=== PATIENT | male | born 1935 | race Caucasian/White ===

== ENCOUNTER → 2016-06-25 | Outpatient (CLI) | payer OTHER, BC ==
[~2016-06-25] MED LIST: ANT25 PO; ASPCH81; ASPI81TA28 PO; CMD4 PO; FINA5TAB PO; IBUP-1050 PO; LNX125 PO; METO-452 PO; METO50TA16 PO; NTRGSL/4 UT; ONDA4TAB10 SL; PRAV40TA2 PO; WARF2TAB8 PO; WARF4TAB8 PO
[2016-06-25 12:29] LABS: CHOLESTEROL/HDL RATIO 3.5
== END | disposition home or self-care (01) ==
LOC: C.LAB1850 09:10
PROVIDERS: ATTEND Internal Medicine Cardiovascular Disease
DX: E78.00 Pure hypercholesterolemia, unspecified (principal); I10 Essential (primary) hypertension

== ENCOUNTER → 2016-06-27 | Outpatient (CLI) | payer OTHER, BC ==
[2016-06-27 15:09] LABS: CALCIUM 9.2 mg/dl (8.5-10.1)
[2016-06-27 15:17] LABS: BLOOD UREA NITROGEN 20 mg/dl (7-18); BUN/CREATININE RATIO 21.8 (10-20); CARBON DIOXIDE 30 mmol/L (21-32); CHLORIDE 105 mmol/L (98-107); CREATININE 0.91 mg/dl (0.60-1.40); GLUCOSE 86 mg/dl (70-99); POTASSIUM 4.5 mmol/L (3.5-5.1); SODIUM 141 mmol/L (136-145)
== END | disposition home or self-care (01) ==
LOC: C.LABBC 11:52
PROVIDERS: ATTEND Family Medicine
DX: I10 Essential (primary) hypertension (principal); C61 Malignant neoplasm of prostate

== ENCOUNTER 2016-07-26 13:23 | Emergency (ER) | payer OTHER, BC ==
[~2016-07-26] VITALS: Ht 172.7 cm; Wt 53.6 kg
[~2016-07-26 13:23] MED LIST changes: -ANT25 PO; -ASPI81TA28 PO; -METO-452 PO; -ONDA4TAB10 SL; -WARF4TAB8 PO
[2016-07-26 13:31] VITALS: TEMP 36.7
[2016-07-26] MEDS ORDERED: MECLIZINE HCL 25 MG TAB PO STA (14:21)
[2016-07-26] MEDS ORDERED: SODIUM CHLORIDE 0.9% 500ML 500 ML IV STA (14:21)
[2016-07-26] MEDS ORDERED: ONDANSETRON INJ 2 MG/ML 2 ML VIAL IV STA (14:21)
--- NOTE | 2016-07-26 14:29 | EMERGENCY ROOM VISIT NOTE ---
History Report prepared by [place]: Sharri Robb Under the Supervision of: Dr. Alphonso Cooper M.D. First contact with patient: 14:15 Chief Complaint: DIZZY Stated Complaint: DIZZY, NAUSEA Nursing Triage Summary: dizziness, vomiting. he had similar symptoms like this in the past, vertigo/ ear infections. patient denies slurred speech. History of Present Illness The patient is an 81 year old male who presents to the Emergency Room with complaints of persistent dizziness that began approximately 1.5 hours prior to arrival. The patient states that today he developed dizziness and then became nauseous and vomited. He states that he noticed the symptoms in his whole body and denies any one-sided weakness. The patient reports that he felt fine earlier today and denies any recent illness over the past several days. He additionally associates abdominal pain with his symptoms today, but denies any chest pain or fall due to his dizziness. The patient reports that he has been becoming increasingly weak over the past several weeks. The patient states that he has had vertigo in the past. Source of History: patient Onset: 1.5 hours prior to arrival Position: other (global) Quality: other (dizziness) Timing: other (persistent) Associated Symptoms: + nausea, + vomiting, + abdominal pain, + fatigue, No chest pain Review of Systems ROS: Please see HPI. At least 10 systems in total were reviewed and otherwise negative. Past Medical & Surgical Medical Problems: (1) Heart disease (2) Hypertension (3) Stroke Surgical Problems: (1) Prostate cancer Family History FH: heart disease Social History Smoking Status: Never Smoker Alcohol Use: none Marital Status: Occupation Status: retired Current/Historical Medications Scheduled Aspirin (Aspirin Ec), 81 MG PO DAILY Digoxin (Digoxin), 125 MCG PO HS Metoprolol Succinate (Toprol Xl), 50 MG PO DAILY Nitroglycerin (Nitrostat), 0.4 MG UT PRN Ondasetron Odt (Zofran Odt), 4 MG SL Q6H Warfarin Sod (Coumadin), 4 MG PO 5XWK Warfarin Sod (Jantoven), 2 MG PO 2XWK Scheduled PRN Meclizine HCl (Meclizine HCl), 1 TAB PO Q6 PRN for Dizziness or Vertigo Allergies Coded Allergies: Lovastatin (Verified Adverse Reaction, Unknown, INTOLERANT TO STATINS, ) Niacin (Verified Adverse Reaction, Unknown, INTOLERANT, 11/20/15) Physical Exam Vital Signs Date Time Temp Pulse Resp B/P (MAP) Pulse Ox O2 Delivery O2 Flow Rate FiO2 07/26/16 16:35 70 17 146/78 99 Room Air 07/26/16 15:00 97 Room Air 07/26/16 14:45 70 12 129/72 98 Room Air 07/26/16 14:32 73 07/26/16 13:31 36.7 72 18 120/67 97 Room Air Physical Exam GENERAL: Patient is in no acute distress. HEENT: No acute trauma, normocephalic atraumatic, no nystagmus, mucous membranes moist, no nasal congestion, no scleral icterus. NECK: No stridor, no adenopathy, no meningismus, trachea is midline. LUNGS: Clear to auscultation bilaterally, no wheeze, no rhonchi, breath sounds equal. HEART: Subtle systolic murmur with an irregular rhythm and normal rate. ABDOMEN: Soft, nontender, bowel sounds positive, no hernias, no peritonitis. EXTREMITIES: No cyanosis or edema, full range of motion of all the joints without pain or difficulty, no signs for acute trauma. NEUROLOGIC: Oriented x 3, no acute motor or sensory deficits, no focal weakness. No pronator drift or cerebellar dysfunction, no speech slur or facial droop. SKIN: No rash, no jaundice, no diaphoresis. Medical Decision & Procedures ER Provider Diagnostic Interpretation: X-ray results as stated below per interpretation by me and the radiologist: CT SCAN OF THE BRAIN WITHOUT IV CONTRAST CLINICAL HISTORY: Strokelike symptoms. Generalized weakness. Unsteady gait. COMPARISON STUDY: CT of the brain dated 10/15/2012. TECHNIQUE: Unenhanced axial CT scan of the brain is performed from the vertex to the skull base. CT DOSE: 537.48 mGy.cm FINDINGS: Brain parenchyma: There are age-related involutional changes noting [id number] patchy subcortical and periventricular microangiopathic change. There is no hemorrhage, mass effect, or evidence of acute territorial ischemia by CT criteria. Feldman-white matter is preserved. No extra-axial fluid collection is seen. Ventricles, sulci, cisterns: Prominent secondary to involutional change. Intracranial vasculature: There is atherosclerotic calcification of the cavernous carotid and vertebral arteries. Calvarium: Unremarkable. Sinuses and mastoids: The visualized paranasal sinuses are clear. The mastoid air cells are well pneumatized. Orbits: The bony orbits are grossly intact. There are bilateral ocular lens implants. IMPRESSION: There is no hemorrhage, mass effect, or evidence of acute territorial ischemia by CT criteria. Electronically signed by: Alphonso Leal M.D. 07/26/2016 3:29 PM Dictated Date/Time: 07/26/2016 3:26 PM Laboratory Results 07/26/16 14:30 Red Blood Count 4.30, Mean Corpuscular Volume 94.4, Mean Corpuscular Hemoglobin 31.9, Mean Corpuscular Hemoglobin Concent 33.7, Mean Platelet Volume 9.0, Neutrophils (%) (Auto) 79.5, Lymphocytes (%) (Auto) 12.0, Monocytes (%) (Auto) 7.9, Eosinophils (%) (Auto) 0.3, Basophils (%) (Auto) 0.3, Neutrophils # (Auto) 5.16, Lymphocytes # (Auto) 0.78, Monocytes # (Auto) 0.51, Eosinophils # (Auto) 0.02, Basophils # (Auto) 0.02 07/26/16 14:30 Test 07/26/16 14:30 07/26/16 16:04 White Blood Count 6.49 K/uL (4.8-10.8) Red Blood Count 4.30 M/uL (4.7-6.1) Hemoglobin 13.7 g/dL (14.0-18.0) Hematocrit 40.6 % (42-52) Mean Corpuscular Volume 94.4 fL (80-100) Mean Corpuscular Hemoglobin 31.9 pg (25-34) Mean Corpuscular Hemoglobin Concent 33.7 g/dl (32-36) Platelet Count 208 K/uL (130-400) Mean Platelet Volume 9.0 fL (7.4-10.4) Neutrophils (%) (Auto) 79.5 % Lymphocytes (%) (Auto) 12.0 % Monocytes (%) (Auto) 7.9 % Eosinophils (%) (Auto) 0.3 % Basophils (%) (Auto) 0.3 % Neutrophils # (Auto) 5.16 K/uL (1.4-6.5) Lymphocytes # (Auto) 0.78 K/uL (1.2-3.4) Monocytes # (Auto) 0.51 K/uL (0.11-0.59) Eosinophils # (Auto) 0.02 K/uL (0-0.5) Basophils # (Auto) 0.02 K/uL (0-0.2) RDW Standard Deviation 50.4 fL (36.4-46.3) RDW Coefficient of Variation 14.7 % (11.5-14.5) Immature Granulocyte % (Auto) 0.0 % Immature Granulocyte # (Auto) 0.00 K/uL (0.00-0.02) Anion Gap 9.0 mmol/L (3-11) Est Creatinine Clear Calc Drug Dose 39.3 ml/min Estimated GFR () 72.1 Estimated GFR (Non- 62.2 BUN/Creatinine Ratio 22.1 (10-20) Calcium Level 8.8 mg/dl (8.5-10.1) Magnesium Level 2.1 mg/dl (1.8-2.4) Total Bilirubin 0.8 mg/dl (0.2-1) Direct Bilirubin 0.2 mg/dl (0-0.2) Aspartate Amino Transf (AST/SGOT) 33 U/L (15-37) Alanine Aminotransferase (ALT/SGPT) 25 U/L (12-78) Alkaline Phosphatase 91 U/L (45-117) Total Creatine Kinase 193 U/L (39-308) Creatine Kinase MB 2.8 ng/ml (0.5-3.6) Creatine Kinase MB Ratio 1.5 (0-3.0) Troponin I 0.033 ng/ml (0-0.045) Total Protein 7.3 gm/dl (6.4-8.2) Albumin 3.7 gm/dl (3.4-5.0) Thyroid Stimulating Hormone (TSH) 0.725 uIu/ml (0.300-4.500) Digoxin Level 0.7 ng/ml (0.8-2.0) Prothrombin Time 17.9 SECONDS (9.0-12.0) Prothromb Time International Ratio 1.6 (0.9-1.1) Activated Partial Thromboplast Time 29.0 SECONDS (21.0-31.0) Partial Thromboplastin Ratio 1.1 Laboratory results reviewed by me. Medications Administered Medications (Trade) Dose Ordered Sig/Omi Route Start Time Stop Time Status Last Admin Dose Admin Sodium Chloride 500 ml @ 999 mls/hr Q31M STAT IV 07/26/16 14:21 07/26/16 14:51 DC 07/26/16 14:53 999 MLS/HR Meclizine HCl (Antivert Tab) 25 mg NOW STAT PO 07/26/16 14:21 07/26/16 14:24 DC 07/26/16 14:54 25 MG Ondansetron HCl (Zofran Inj) 4 mg NOW STAT IV 07/26/16 14:21 07/26/16 14:24 DC 07/26/16 14:53 4 MG ECG Indication: nausea, vomiting, other (dizziness) Rate (beats per minute): 71 Rhythm: other (ventricular pacemaker) Findings: no acute ischemic change, other (occasional [place] beats) ED Course 1416: The patient was evaluated in room B6. A complete history and physical exam was performed. 1421: Ordered Zofran Inj 4 mg IV, Antivert Tab 25 mg PO, Sodium Chloride 500 ml @ 999 mls/hr IV. 1628: I reevaluated the patient and he is feeling a lot better. I discussed his exam findings with him thus far. He is going to have an ambulation trial. 1637: Per nursing staff the patient has done well with his ambulatory trial. I discussed the treatment plan with him and he verbalized complete understanding and agreement. He is ready to go home shortly. 1657: I reevaluated the patient and he is doing well. He is ready to go home. Medical Decision The patient is an 81 year old male who presents to the ED with complaints of dizziness. Differential diagnoses considered include vertigo, stroke, electrolyte imbalance, dysrhythmia, anemia, infection. There is no leukocytosis or concerning anemia. No significant electrolyte abnormality or kidney failure. The patient appeared to be in a euthyroid state. EKG showed a ventricular pacemaker, no evidence for dysrhythmia. Cardiac enzyme testing times one is not consistent with acute cardiac injury. Brain CT shows no acute bleed or mass effect. The patient's INR was somewhat low for someone using Coumadin. He was under anticoagulated. Digoxin level was not toxic. On exam, there were no focal neurologic deficits. The patient received IV saline, he was given IV Zofran and oral meclizine. He was watched here for a few hours. He feels markedly improved. He is now up and walking without symptoms. The patient likely has vertigo as a cause for his presentation. I do think he can be discharged with some meclizine and Zofran, he was encouraged to follow with his doctor and to return here for worsening symptoms. He will need to have his INR followed closely. He is taking an extra dose of Coumadin tonight to try to boost his levels. Medication Reconciliation: I attest that I have personally reviewed the patient' s current medication list. Blood Pressure Screening: Patient was found to have an elevated blood pressure and was referred to their primary doctor for recheck and further treatment. Impression Primary Impression: Vomiting Additional Impression: Vertigo Scribe Attestation The scribe's documentation has been prepared under my direction and personally reviewed by me in its entirety. I confirm that the note above accurately reflects all work, treatment, procedures, and medical decision making performed by me. Departure Information Dispostion Home / Self-Care Prescriptions Ondasetron Odt (ZOFRAN ODT) 4 Mg Tab 4 MG SL Q6H for Nausea, #12 TAB Prov: Alphonso Cooper M.D. 07/26/16 Meclizine HCl (Meclizine HCl) 25 Mg Tab 1 TAB PO Q6 Y for Dizziness or Vertigo, #12 TAB Prov: Alphonso Cooper M.D. 07/26/16 Referrals Je Jensen D.O.Int.Med. (PCP) Forms HOME CARE DOCUMENTATION FORM, IMPORTANT VISIT INFORMATION Patient Instructions My [facility] Additional Instructions rest stay well hydrated meclizine 1 tab every 6 hours for dizziness or vertigo zofran 1 tab every 6 hours as needed for nausea see marcia castorena for a recheck next week take a full tab of coumadin today--recheck the INR next week, it was a little low today return if worsening Problem Qualifiers
[2016-07-26 14:51] LABS: BASO % 0.3 %; BASO ABS # 0.02 K/uL (0-0.2); COMPLETE YES; EOS % 0.3 %; HEMATOCRIT 40.6 % (42-52); LYMPH ABS # 0.78 K/uL (1.2-3.4); MEAN CELL VOLUME 94.4 fL (80-100); MEAN CORPUSCULAR HEMOGLOBIN 31.9 pg (25-34); MEAN CORPUSCULAR HGB CONC 33.7 g/dl (32-36); MONO % 7.9 %; NEUT % 79.5 %; PLATELET COUNT 208 K/uL (130-400); WHITE BLOOD COUNT 6.49 K/uL (4.8-10.8)
[2016-07-26 15:00] VITALS: O2SAT 97; Ht 172.7 cm; Wt 53.6 kg
--- NOTE | 2016-07-26 15:30 | DIAGNOSTIC IMAGING REPORT ---
CT SCAN OF THE BRAIN WITHOUT IV CONTRAST CLINICAL HISTORY: Strokelike symptoms. Generalized weakness. Unsteady gait. COMPARISON STUDY: CT of the brain dated 10/15/2012. TECHNIQUE: Unenhanced axial CT scan of the brain is performed from the vertex to the skull base. CT DOSE: 537.48 mGy.cm FINDINGS: Brain parenchyma: There are age-related involutional changes noting [id number] patchy subcortical and periventricular microangiopathic change. There is no hemorrhage, mass effect, or evidence of acute territorial ischemia by CT criteria. Feldman-white matter is preserved. No extra-axial fluid collection is seen. Ventricles, sulci, cisterns: Prominent secondary to involutional change. Intracranial vasculature: There is atherosclerotic calcification of the cavernous carotid and vertebral arteries. Calvarium: Unremarkable. Sinuses and mastoids: The visualized paranasal sinuses are clear. The mastoid air cells are well pneumatized. Orbits: The bony orbits are grossly intact. There are bilateral ocular lens implants. IMPRESSION: There is no hemorrhage, mass effect, or evidence of acute territorial ischemia by CT criteria. Electronically signed by: Alphonso Leal M.D. 07/26/2016 3:29 PM Dictated Date/Time: 07/26/2016 3:26 PM
[2016-07-26 15:33] LABS: BUN/CREATININE RATIO 22.1 (10-20); CALCIUM 8.8 mg/dl (8.5-10.1); CREATININE 1.1 mg/dl (0.60-1.40); MAGNESIUM 2.1 mg/dl (1.8-2.4); POTASSIUM 4.3 mmol/L (3.5-5.1)
[2016-07-26] MEDS ORDERED: WARF4TAB8 PO (15:42)
[2016-07-26] MEDS ORDERED: CMD4 PO (15:42)
[2016-07-26] MEDS ORDERED: ASPI81TA28 PO (15:42)
[2016-07-26] MEDS ORDERED: METO-452 PO (15:42)
[2016-07-26 15:44] LABS: CKMB/CK RATIO 1.5 (0-3.0); THYROID STIMULATING HORMONE 0.725 uIu/ml (0.300-4.500)
[2016-07-26 16:26] LABS: INR 1.6 (0.9-1.1); PARTIAL THROMBOPLASTIN RATIO 1.1; PROTHROMBIN TIME (PATIENT) 17.9 SECONDS (9.0-12.0)
[2016-07-26 16:35] VITALS: BP 146/78; PULSE 70; O2SAT 99
[2016-07-26] MEDS ORDERED: ANT25 PO (16:54)
[2016-07-26] MEDS ORDERED: ONDA4TAB10 SL (16:54)
== END 2016-07-26 17:04 | disposition home or self-care (01) ==
LOC: C.EDB 13:24
DX: R11.10 Vomiting, unspecified (principal); R42 Dizziness and giddiness; I10 Essential (primary) hypertension; I51.9 Heart disease, unspecified; Z86.73 Personal history of transient ischemic attack (TIA), and cerebral infarction without residual deficits; Z85.46 Personal history of malignant neoplasm of prostate; Z79.82 Long term (current) use of aspirin; Z79.01 Long term (current) use of anticoagulants; Z79.899 Other long term (current) drug therapy; Z82.49 Family history of ischemic heart disease and other diseases of the circulatory system

== ENCOUNTER → 2016-12-18 | Outpatient (CLI) | payer OTHER, BC ==
[~2016-12-18] MED LIST changes: +ANT25 PO; -ASPCH81; +ASPI81TA28 PO; -FINA5TAB PO; -IBUP-1050 PO; +METO1TAB66 PO; -METO50TA16 PO; +ONDA4TAB10 SL; -PRAV40TA2 PO; -WARF2TAB8 PO; +WARF4TAB8 PO
[2016-12-18 10:05] LABS: CHOLESTEROL/HDL RATIO 3.3
== END | disposition home or self-care (01) ==
LOC: C.LAB1850 07:29
PROVIDERS: ATTEND Internal Medicine Cardiovascular Disease
DX: I25.10 Atherosclerotic heart disease of native coronary artery without angina pectoris (principal)

== ENCOUNTER → 2017-06-12 | Outpatient (CLI) | payer OTHER, BC ==
[~2017-06-12] MED LIST changes: +METO-452 PO; -METO1TAB66 PO; -ONDA4TAB10 SL
== END | disposition home or self-care (01) ==
LOC: C.LAB1850 07:40
PROVIDERS: ATTEND Internal Medicine Cardiovascular Disease
DX: E78.00 Pure hypercholesterolemia, unspecified (principal); I25.10 Atherosclerotic heart disease of native coronary artery without angina pectoris; Z95.1 Presence of aortocoronary bypass graft

== ENCOUNTER → 2017-06-24 | Outpatient (CLI) | payer OTHER, BC ==
[2017-06-24 13:17] LABS: BLOOD UREA NITROGEN 19 mg/dl (7-18); CALCIUM 8.8 mg/dl (8.5-10.1); CARBON DIOXIDE 31 mmol/L (21-32); CREATININE 0.87 mg/dl (0.60-1.40); GLUCOSE 91 mg/dl (70-99); POTASSIUM 4.4 mmol/L (3.5-5.1); SODIUM 139 mmol/L (136-145)
== END | disposition home or self-care (01) ==
LOC: C.LABBC 10:09
PROVIDERS: ATTEND Family Medicine Adult Medicine
DX: I48.91 Unspecified atrial fibrillation (principal); I10 Essential (primary) hypertension

== ENCOUNTER → 2017-07-03 | Outpatient (CLI) | payer OTHER, BC ==
--- NOTE | 2017-07-03 12:26 | DIAGNOSTIC IMAGING REPORT ---
ART DOP LOWER EXT BILAT CLINICAL HISTORY: R60.0 Bilateral edema of lower [id number] Peripheral cyanosi COMPARISON STUDY: None Findings: Biphasic waveforms are noted within the arterial structures of the thighs bilaterally. Biphasic waveforms are noted within all 3 runoff vessels of the lower legs bilaterally. Ankle brachial indices could not be obtained due to patient discomfort. Minimal/mild atherosclerotic changes noted throughout the arterial systems bilaterally. IMPRESSION: Mild plaque formation bilaterally. No significant stenotic process. The above report was generated using voice recognition software. It may contain grammatical, syntax or mild plaque formation bilaterally. No significant stenosis. Spelling errors. Electronically signed by: Lui Nicolas M.D. 07/03/2017 12:25 PM Dictated Date/Time: 07/03/2017 12:23 PM
== END | disposition home or self-care (01) ==
LOC: C.ULTR 10:20
PROVIDERS: ATTEND Family Medicine Adult Medicine
DX: R60.0 Localized edema (principal); R23.0 Cyanosis

== ENCOUNTER → 2017-07-11 | Outpatient (CLI) | payer OTHER, BC ==
--- NOTE | 2017-07-11 08:14 | DIAGNOSTIC IMAGING REPORT ---
(CHEST) THORAX WITHOUT CT DOSE: 246.51 mGy.cm CLINICAL HISTORY: 82 years-old Male with R91.8 Pulmonary [id number]. Follow-up study in a patient with history of pulmonary nodules. History of prostate cancer. TECHNIQUE: Multiaxial CT images of the chest were performed without contrast. A dose lowering technique was utilized adhering to the principles of ALARA. COMPARISON: Chest CT 12/27/2015. FINDINGS: No dominant thyroid nodule. Mildly enlarged 10 mm pretracheal lymph node with 9 mm precarinal lymph node. These are nonspecific. Prior median sternotomy with CABG. Coronary arterial calcifications are noted. Moderate atherosclerosis of the aorta with tortuosity of the descending thoracic aorta. Left subclavian pacer is noted with leads overlying the right atrium and right ventricle. No pericardial effusion. Small right pleural effusion. No pneumothorax. Mild upper lobe predominant emphysema. Mild symmetrical bronchiectasis of the right upper lobe redemonstrated. Linear subsegmental consolidative opacities about the lateral basal segment left lower lobe are unchanged compatible with pleural parenchymal scarring. Tree-in-bud nodules throughout the right upper, middle and lower lobes suggest infectious or inflammatory bronchiolitis. Solid nodule of the right upper lobe measuring 5 mm is seen on image 127 series 4, unchanged. 3 mm solid nodule of the right lower lobe on image 174 series 4 is also unchanged. Previously noted 3 mm solid nodule of the lingula on comparison study is not definitively seen. There is mild subsegmental linear consolidation of the right middle lobe suggesting scarring/atelectasis. Mild residual secretions are noted bilaterally. 5 mm solid nodule of the right upper lobe, image 124 series 4 is unchanged. 4 mm pleural-based solid nodule of the medial basal segment right lower lobe is stable. There are calcifications of the tracheobronchial tree. There is no acute process of the imaged upper abdomen. Soft tissues are unremarkable. The bones appear mildly demineralized. Degenerative changes are seen throughout the spine. IMPRESSION: 1. Small right pleural effusion with multifocal areas of tree-in-bud nodularity throughout the right upper, middle and lower lobes compatible with infectious or inflammatory bronchiolitis with areas of mild cylindrical bronchiectasis. 2. Mild upper lobe predominant centrilobular emphysema. 3. Multiple scattered solid pulmonary nodules as above measuring up to 5 mm appear stable from comparison study dated 12/27/2015. No new or enlarging pulmonary nodules are identified. 4. Prior median sternotomy with CABG. Please refer to below summary of Fleischner criteria recommendations for follow-up of incidental CT nodules (Kobi Duron, Guidelines for management of small pulmonary nodules detected on CT scans: A statement from the Fleischner Society, Radiology 237: [phone].) SOLID NODULES Multiple nodules size: <6 mm * Low risk patients: no routine follow-up * high risk patients: optional CT at 12 months Note: newly detected indeterminate nodule in persons 35 years of age or older. * Low risk patients: minimal or absent history of smoking and/or other known risk factors * high risk patients: history of smoking or of other known risk factors (e.g. first degree relative with lung cancer, or exposure to asbestos, radon, uranium) * if a nodule up to 8 mm is partly solid or is ground glass further follow-up is required after 24 months to exclude possible slow growing adenocarcinoma (TESSIE) The above report was generated using voice recognition software. It may contain grammatical, syntax or spelling errors. Electronically signed by: Billy Ferrer M.D. 07/11/2017 8:13 AM Dictated Date/Time: 07/11/2017 8:02 AM
== END | disposition home or self-care (01) ==
LOC: C.CTS 07:48
PROVIDERS: ATTEND Family Medicine Adult Medicine
DX: R91.8 Other nonspecific abnormal finding of lung field (principal)

== ENCOUNTER → 2017-10-10 | Day surgery (SDC) | payer OTHER, BC ==
[2017-10-04 11:24] VITALS: Ht 177.8 cm; Wt 58.2 kg
--- NOTE | 2017-10-09 10:29 | History and Physical: Surg Cnt ---
History & Physical Date Oct 09, 2017. Chief Complaint basal cell right ear, nodule left ear History of Present Illness The patient is a 82 year old male with complaints of s/p Moh's surgery right ear for basal cell, has large defect, also nodule left ear, tender Past Medical/Surgical History Medical Problems: (1) Heart disease (2) Hypertension (3) Stroke Surgical Problems: (1) Prostate cancer Additional History Hepatic Disease: No Endocrine Disorder: No Kidney Disease: No Hypertension: Yes Heart Disease: Yes Bleeding Tendencies: No Infectious Diseases: No Allergies Coded Allergies: Lovastatin (Verified Adverse Reaction, Unknown, INTOLERANT TO STATINS, 12/12) Niacin (Verified Adverse Reaction, Unknown, INTOLERANT, 10/04/17) Home Medications Scheduled Aspirin (Aspirin Ec), 81 MG PO DAILY Digoxin (Digoxin), 125 MCG PO HS Metoprolol Succinate (Toprol Xl), 50 MG PO DAILY Nitroglycerin (Nitrostat), 0.4 MG UT PRN Warfarin Sod (Coumadin), 4 MG PO DAILY Scheduled PRN Meclizine HCl (Meclizine HCl), 1 TAB PO Q8 PRN for vertigo Physical Examination Skin: warm/dry, no rash Eyes: normal inspection, EOMI, sclerae normal ENT: + pertinent finding (defect right ear helix, nodule left ear helix) Head: normocephalic, atraumatic Neck: supple, no adenopathy, trachea midline Respiratory/Chest: lungs clear, normal breath sounds, no respiratory distress Cardiovascular: regular rate, rhythm, no edema, no murmur Diagnosis basal cell right ear, nodule left ear(chondrodermatitis) Plan of Treatment wedge excision and flap reconstruction right ear, excision nodule left ear
[~2017-10-10] VITALS: Ht 177.8 cm; Wt 58.2 kg
[~2017-10-10] MED LIST changes: +BACITRACIN OINT 15 GM TUBE TOP ONE; +CEFAZOLIN 1000MG IV PUSH 7.5 ML IV SCH; +HYDR-5688 PO; +HYDROCODONE/ACETAMIN 5/325MG TAB PO PRN; +LACTATED RINGER'S 1000ML 1,000 ML IV SCH; +LIDO 2%/EPINEPHRINE 1:100000 20 ML VIAL ONE; +MUPIROCIN 2% OINT 22 GM TUBE ONE; +SODIUM CHLORIDE 0.9% 1000ML 1,000 ML IV SCH; -WARF4TAB8 PO
--- NOTE | 2017-10-10 12:45 | Anesthesia Progress Nt - [facility] ---
Anesthesia Post Op Note Date & Time Oct 10, 2017 at 12:45 Vital Signs Pain Intensity: 0 Vital Signs Past 12 Hours Date Time Temp Pulse Resp B/P (MAP) Pulse Ox O2 Delivery O2 Flow Rate FiO2 10/10/17 10:44 36.6 81 18 132/77 (95) 98 Room Air Notes Mental Status: alert / awake / arousable, participated in evaluation Pt Amnestic to Procedure: Yes Nausea / Vomiting: adequately controlled Pain: adequately controlled Airway Patency, RR, SpO2: stable & adequate BP & HR: stable & adequate Hydration State: stable & adequate Anesthetic Complications: no major complications apparent
[2017-10-10 13:52] VITALS: BP 139/81; PULSE 83; TEMP 36.3; O2SAT 98
--- NOTE | 2017-10-10 13:53 | Discharge Instructions-SurgCtr ---
Discharge Instructions Date of Service Oct 10, 2017. Visit Reason for Visit: Basal Cell Right Ear, Nodule Left Ear Discharge Discharge Diagnosis / Problem: same Discharge Goals Goal(s): Therapeutic intervention Activity Recommendations Activity Limitations: resume your previous activity Anesthesia . Post Anesthesia Instructions: If you have had General Anesthesia or IV Sedation: * Do not drive today. * Resume driving when surgeon permits. * Do not make important decisions or sign legal documents today. * Call surgeon for: 1. Temperature elevations greater than 101 degrees F. 2. Uncontrollable pain. 3. Excessive bleeding. 4. Persistent nausea and vomiting. 5. Medication intolerance (nausea, vomiting or rash). * For nausea and vomiting use only clear liquids such as: tea, soda, bouillon until nausea subsides, then gradually increase diet as tolerated. * If you have any concerns or questions, call your surgeon's office. If physician is unavailable and it is an emergency, call 911 or go to the nearest emergency room. . Instructions / Follow-Up Instructions / Follow-Up ACTIVITY: Most patients are able to return to a full-time work schedule in 1 week; however this may vary according to your job. It may take longer to return to heavy physical or other demanding work, or shorter if you are feeling well. Do NOT drive a car until you are able to turn the neck side to side, which may take 1-[address] while you are taking pain medicines. DIET: You may be able to return to your usual diet in a couple of days. INCISION CARE: You may shower 24 hours after surgery but please do not swim or soak in a tub for at least 2 weeks. After you are done showering, just pat your incision dry. If it is draining clear fluid, you can cover it with a dry dressing (such as gauze). Do NOT scrub with soap or washcloth for the first 10 days. Mild swelling at the incision site will go away in 4-6 weeks. The pink line will slowly fade to white during the next 6-12 months. COMMON PROBLEMS: Your incision may feel itchy while it heals. Avoid rubbing or scratching if possible. CALL YOUR DOCTOR IF: For any non-urgent questions, call Dr. Blue office [phone] or the nursing unit where you were a patient. Call Dr. Carranza [phone] or go to the Emergency Room if you have fever ( temperature greater than 100.5), chills, lightheadedness, shortness of breath, difficulty breathing, nausea, vomiting, numbness or tingling in your fingers, hands, or mouth, muscle spasms, or if you notice signs of wound infection ( redness, tenderness, or drainage from the incision). Please also call or go to the Emergency Room if you have any other urgent concerns. FOLLOW UP VISIT: Follow-up visit with Dr. Carranza. Please call to schedule if not already scheduled. Diet Recommendations Home Diet: no limitations Procedures Procedures Performed: Right Ear Wedge Excision And Flap Reconstruction Pending Studies Studies pending at discharge: no Medical Emergencies . Who to Call and When: Medical Emergencies: If at any time you feel your situation is an emergency, please call 911 immediately. . Non-Emergent Contact Non-Emergency issues call your: Primary Care Provider . . "Provider Documentation" section prepared by Ifrah Carranza. . [place] Drug Monitoring Program Search Results: no issues identified
--- NOTE | 2017-10-10 13:58 | [facility] Post Operative Brief Note ---
Immediate Operative Summary Operative Date Oct 10, 2017. Pre-Operative Diagnosis S/P Moh's Surgery Right Ear for Basal Cell CA Post-Operative Diagnosis same Procedure(s) Performed Right Ear Wedge Excision And Flap Reconstruction Surgeon Dr. Freida Carranza Special Technical Operations Officer Surgeon(s) 0 Estimated Blood Loss 10CC Findings Consistent with Post-Op Diagnosis Specimens A. Scar from previous Moh's Surgery Right Ear Drains None Anesthesia Type Local Complication(s) none Disposition Accompanied Pt To Recover: yes Disposition: Recovery Room / PACU Overlapping Procedure I was present for: the critical portions of procedure. I was immediately available: during the entire case
--- NOTE | 2017-10-10 14:05 | Anesthesia Progress Nt - [facility] ---
Anesthesia Post Op Note Date & Time Oct 10, 2017 at 14:04 Vital Signs Pain Intensity: 0 Vital Signs Past 12 Hours Date Time Temp Pulse Resp B/P (MAP) Pulse Ox O2 Delivery O2 Flow Rate FiO2 10/10/17 13:52 36.3 83 16 139/81 (100) 98 Room Air 10/10/17 13:35 83 100 10/10/17 13:35 83 10/10/17 13:31 80 16 116/73 99 Room Air 10/10/17 13:31 116/73 10/10/17 13:30 85 99 10/10/17 13:30 80 10/10/17 13:30 80 10/10/17 13:30 85 99 10/10/17 13:26 121/73 10/10/17 13:26 121/73 10/10/17 13:25 81 10/10/17 13:25 81 98 10/10/17 13:25 81 10/10/17 13:25 81 98 10/10/17 13:21 121/61 10/10/17 13:21 121/61 10/10/17 13:20 78 98 10/10/17 13:20 82 10/10/17 13:20 82 10/10/17 13:20 78 98 10/10/17 13:16 131/64 10/10/17 13:16 131/64 10/10/17 13:15 94 100 10/10/17 13:15 84 10/10/17 13:15 84 10/10/17 13:15 94 100 10/10/17 13:11 132/62 10/10/17 13:11 132/62 10/10/17 13:10 79 10/10/17 13:10 81 97 10/10/17 13:10 81 97 10/10/17 13:10 79 10/10/17 13:06 134/68 10/10/17 13:06 134/68 10/10/17 13:05 75 10/10/17 13:05 71 96 10/10/17 13:05 71 96 10/10/17 13:05 75 10/10/17 13:01 148/75 10/10/17 13:01 148/75 10/10/17 13:00 71 10/10/17 13:00 71 10/10/17 13:00 74 99 10/10/17 13:00 74 99 10/10/17 12:57 143/76 10/10/17 12:57 143/76 10/10/17 12:55 71 100 10/10/17 12:55 71 100 10/10/17 12:55 73 10/10/17 12:55 73 10/10/17 12:50 71 96 10/10/17 12:50 72 10/10/17 12:50 71 96 10/10/17 12:50 72 10/10/17 10:44 36.6 81 18 132/77 (95) 98 Room Air Notes Mental Status: alert / awake / arousable, participated in evaluation Pt Amnestic to Procedure: Yes Nausea / Vomiting: adequately controlled Pain: adequately controlled Airway Patency, RR, SpO2: stable & adequate BP & HR: stable & adequate Hydration State: stable & adequate Anesthetic Complications: no major complications apparent
--- NOTE | 2017-10-10 15:47 | OPERATIVE REPORT ---
DATE OF OPERATION: 10/10/2017 PREOPERATIVE DIAGNOSIS: Deformity of the right ear. POSTOPERATIVE DIAGNOSIS: Same. PROCEDURE: Wedge excision of right external ear with V-Y advancement flap. SURGEON: Richard Carranza MD. ANESTHESIA: Local. COMPLICATIONS: None. BLOOD LOSS: 10 mL. HISTORY OF PRESENT ILLNESS: This is an 82-year-old gentleman underwent previous Mohs surgery for a basal cell carcinoma by her linux system engineer leaving a defect of the right external ear. The patient requested reconstruction of the defect. DESCRIPTION OF PROCEDURE: The patient was brought to the operating room, placed in supine position, prepped with Betadine scrub and paint, draped in the usual sterile manner. The right ear was injected with 2% Xylocaine with 1:100,000 strength epinephrine for local anesthesia. The defect was at the superior edge of the external ear going through the tragal cartilage, with a missing piece of tragal cartilage. The V shaped excision with an advancement flap cutting out the defect distally at the defect and then raising a skin flap proximally on the defect to facilitate a localized advancement flap to cover the defect. In this manner, the wedge excision was performed including skin, cartilage, and the underlying scar tissue. The skin flap proximally was elevated using the iris scissors and then rotated laterally into the defect, distally at the superior border of the helix of the ear. At this point, closure was started. The cartilage was approximated at the V cut using the 3-0 Vicryl sutures approximating the mucoperichondrium and cartilage on both sides closing the defect. The proximal flap was then advanced over the distal defect over the helix of the ear, and the skin flap was sewn in using interrupted 5-0 nylon sutures, and all the skin edges of the V cut was closed using interrupted 5-0 nylon sutures. Bacitracin dressing was placed. The patient tolerated procedure well and was taken to recovery area in satisfactory condition. I attest to the content of the Intraoperative Record and any orders documented therein. Any exception s are noted below.
== END | disposition home or self-care (01) ==
LOC: X.SURG 10:13
PROVIDERS: ATTEND Otolaryngology
DX: H61.891 Other specified disorders of right external ear (principal); H61.001 Unspecified perichondritis of right external ear; Z85.828 Personal history of other malignant neoplasm of skin; I11.9 Hypertensive heart disease without heart failure; Z79.82 Long term (current) use of aspirin

== ENCOUNTER → 2017-10-11 | Outpatient (CLI) | payer OTHER, BC ==
[~2017-10-11] MED LIST changes: -BACITRACIN OINT 15 GM TUBE TOP ONE; -CEFAZOLIN 1000MG IV PUSH 7.5 ML IV SCH; -HYDROCODONE/ACETAMIN 5/325MG TAB PO PRN; -LACTATED RINGER'S 1000ML 1,000 ML IV SCH; -LIDO 2%/EPINEPHRINE 1:100000 20 ML VIAL ONE; -MUPIROCIN 2% OINT 22 GM TUBE ONE; -SODIUM CHLORIDE 0.9% 1000ML 1,000 ML IV SCH
== END | disposition home or self-care (01) ==
LOC: C.LABBC 13:20
PROVIDERS: ATTEND Family Medicine Adult Medicine
DX: R63.4 Abnormal weight loss (principal)